=== PATIENT | male | born 1985 | race Caucasian/White ===

== ENCOUNTER 2017-01-20 07:31 | Emergency (ER) | payer BC | END 2017-01-20 08:10 | disposition home or self-care (01) | LOC: ER 07:31 | DX: J01.90 Acute sinusitis, unspecified (principal); K21.9 Gastro-esophageal reflux disease without esophagitis; F17.210 Nicotine dependence, cigarettes, uncomplicated; Z88.1 Allergy status to other antibiotic agents ==

== ENCOUNTER 2017-04-25 20:23 | Emergency (ER) | payer BC | END 2017-04-26 03:10 | disposition home or self-care (01) | LOC: ER 20:23 | DX: F41.9 Anxiety disorder, unspecified (principal); F17.210 Nicotine dependence, cigarettes, uncomplicated; Z88.1 Allergy status to other antibiotic agents; Z79.899 Other long term (current) drug therapy ==

== ENCOUNTER 2017-04-27 23:00 | Emergency (ER) | payer BC | END 2017-04-28 02:00 | disposition left against medical advice (07) | LOC: ER 23:00 | DX: Z53.21 Procedure and treatment not carried out due to patient leaving prior to being seen by health care provider (principal) ==